=== PATIENT | female | born 1965 | race Caucasian/White ===

== ENCOUNTER 2021-01-02 05:54 | Emergency (ER) | payer BC ==
[~2021-01-02] VITALS: Ht 172.7 cm; Wt 59.1 kg
[2021-01-02] MEDS ORDERED: normal saline 1000ml 1,000 ML IV ONE ×2 (06:05→07:30)
[2021-01-02] MEDS ORDERED: diltiazem 5mg/ml 5ml inj. IV ONE ×2 (06:05→06:50)
--- NOTE | 2021-01-02 06:22 | NUR ---
chest x ray complete
[2021-01-02 06:36] LABS: BASOPHILS # (AUTO) 0.1 X10'3 (0-0.2); BASOPHILS % (AUTO) 1.2 % (0-1); EOSINOPHILS # (AUTO) 0.2 X10'3 (0-0.9); EOSINOPHILS % (AUTO) 4.4 % (0-6); HEMATOCRIT 45.7 % (35.0-45.0); HEMOGLOBIN 15.3 g/dl (12.0-16.0); LYMPHOCYTES # (AUTO) 2.5 X10'3 (1.1-4.8); LYMPHOCYTES % (AUTO) 46.4 % (21-51); MEAN CORPUSCULAR HGB CONC 33.5 g/dL (33.0-36.5); MEAN CORPUSCULAR VOLUME 86.8 FL (78-98); MONOCYTES # (AUTO) 0.6 X10'3 (0-0.9); MONOCYTES % (AUTO) 10.7 % (2-12); NEUTROPHILS % (AUTO) 37.3 % (42-75); PLATELET COUNT 194 X10'3 (140-440); RED BLOOD COUNT 5.26 X10'6 (4.20-5.60); RED CELL DISTRIBUTION WIDTH 13.8 % (11.5-14.5); WHITE BLOOD COUNT 5.3 X10'3 (4.5-11.0)
[2021-01-02] MEDS: diltiazem-NS 100mg/100ml 100 ML IV SCH ×2 (06:39→10:40)
[2021-01-02] MEDS ORDERED: magnesium 2GM in 50ml NS 50 ML IV ONE (06:40)
--- NOTE | 2021-01-02 06:40 | NUR ---
PT C/O CONTRACTIONS ARMS,HANDS, LEGS MAXIMINO AND ACROSS CLAVICLES, AND LIPS. INFORMED DR. MOORE. PLEASE SEE NEW ORDERS.
[2021-01-02] MEDS ORDERED: LORazepam 1 MG tablet PO ONE (06:50)
--- NOTE | 2021-01-02 06:52 | NUR ---
PT C/O ANXIETY, STATES, I JUST CANT RELAX. INFORMED DR. MOORE. PLEASE SEE NEW ORDERS.
[2021-01-02 06:57] LABS: ALANINE AMINOTRANSFERASE 30 U/L (12-78); ALBUMIN 3.9 G/DL (3.4-5.0); ALBUMIN/GLOBULIN RATIO 1.1 (1.1-1.5); ALKALINE PHOSPHATASE 66 IU/L (46-116); ANION GAP 11 (8-16); ASPARTATE AMINO TRANSFERASE 21 U/L (10-37); BILIRUBIN,TOTAL 0.6 MG/DL (0.1-1.0); BLOOD UREA NITROGEN 23 MG/DL (7-18); BUN/CREATININE RATIO 22.3 (6.6-38.0); CALCIUM 9.4 MG/DL (8.5-10.1); CHLORIDE 107 MMOL/L (99-107); CREATININE 1.03 MG/DL (0.40-0.90); GLUCOSE 118 MG/DL (70-104); POTASSIUM 3.3 MMOL/L (3.5-5.1); SODIUM 145 MMOL/L (135-145); TOTAL CARBON DIOXIDE 26.6 MMOL/L (24-32); TOTAL PROTEIN 7.6 G/DL (6.4-8.2); eGFR 56 ML/MIN
[2021-01-02 07:08] LABS: MAGNESIUM 2.2 MG/DL (1.5-2.4)
[2021-01-02] MEDS ORDERED: potassium Cl 20 mEq SR tablet PO STA (07:12)
--- NOTE | 2021-01-02 07:40 | NUR ---
PT DENIES ANY CONTRACTIONS OR CRAMPING AT THIS TIME. STATES, I FEEL SO MUCH BETTER, ALMOST NORMAL.
--- NOTE | 2021-01-02 07:50 | NUR ---
500CC URINE OUTPUT VIA BSC
[2021-01-02 07:51] LABS: CLARITY,URINE CLEAR (Clear); COLOR,URINE STRAW (Yellow); GLUCOSE, URINE NEGATIVE (Neg); KETONES,URINE 15 mg/dl (Neg); LEUKOCYTE ESTERASE ,URINE NEGATIVE (Neg); NITRITES, URINE NEGATIVE (Neg); OCCULT BLOOD,URINE NEGATIVE (Neg); PROTEIN,URINE NEGATIVE (Neg); UROBILINOGEN,URINE 0.2 E.U/dL (0.2-1.0)
[2021-01-02 07:52] LABS: UA COLLECTION TYPE CLN CATCH MIDSTREAM
[2021-01-02] MEDS ORDERED: METO-395 PO (08:59)
[2021-01-02] MEDS ORDERED: ASPI-1265 PO (08:59)
[2021-01-02] MEDS ORDERED: aspirin 325mg tablet PO ONE (09:00)
--- NOTE | 2021-01-02 09:09 | NUR ---
PATIENT UP TO BSC, STAEDY ON FEET; PATIENT REPORTS TAKING TWO 325 MG ASPIRIN AT HOME. SHANI GT OFF. PRIMARY RN ON BREAK
[2021-01-02 10:19] VITALS: BP 101/61
== END 2021-01-02 11:09 | disposition home or self-care (01) ==
LOC: ER 05:55
DX: I48.20 Chronic atrial fibrillation, unspecified (principal); Z79.82 Long term (current) use of aspirin; Z79.899 Other long term (current) drug therapy
CPT/HCPCS: 36415; 71045; 80053; 81003; 83735; 83880; 84443; 84484; 85025; 93005; 96365; 96375; 99285; J3475; J7030; J3490